=== PATIENT | male | born 1995 | race Caucasian/White ===

== ENCOUNTER 2022-12-16 18:39 | Emergency (ER) | payer SELFPAY ==
[2022-12-16 19:01] VITALS: BP 143/83; PULSE 74; RESP 16; TEMP 36.8; O2SAT 99; BMI 31.2
--- NOTE | 2022-12-16 20:06 | USR_ITS ---
PROCEDURE INFORMATION: Exam: US Duplex Left Lower Extremity Veins, Limited Exam date and time: 12/16/2022 8:28 PM Age: 27 years old Clinical indication: Pain; Leg, lower; Left; Additional info: Lle pain, left popliteal pain radiating down into the left calf TECHNIQUE: Imaging protocol: Real-time duplex ultrasound of the left extremity with 2-D reagan scale, color Doppler flow and spectral waveform analysis including responses to compression and other maneuvers (when performed) with image documentation. Limited exam focused on the left lower extremity veins. COMPARISON: No relevant prior studies available. FINDINGS: Left deep veins: Unremarkable. The common femoral, femoral, proximal profunda femoral and popliteal veins are patent without thrombus. Normal Doppler waveforms. Normal compressibility and/or augmentation response. Left superficial veins: Unremarkable. Saphenofemoral junction is patent without thrombus. Soft tissues: Unremarkable. US/[place] [id number] IMPRESSION: No evidence of deep vein thrombosis.
--- NOTE | 2022-12-16 20:40 | W.ED.EXTPRO ---
HPI - Extremity Problem General: Chief complaint: Extremity Problem,Nontraumatic Stated complaint: left leg pain radiating Time Seen by Provider: 12/16/22 19:30 Source: patient Mode of arrival: ambulatory Limitations: no limitations History of Present Illness: Patient presents to the emergency department today for evaluation treatment of left popliteal pain radiating down into his left calf. Patient states is been bothering him off and on now for several days but has not gotten any better. He denies any known injuries. He states nothing like this is happened before. He has not had fevers. 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 He denies any previous injuries to the knee in the past. Review of Systems General: Reports: 10 or more systems reviewed and unremarkable except in HPI and below Physical Exam Const: COMMON NORMALS: no acute distress, patient oriented x3 and alert HENMT: COMMON NORMALS: normocephalic, atraumatic and hearing grossly normal bilaterally HEAD & SCALP: normocephalic and atraumatic Eye: COMMON NORMALS: Equal, round and reactive pupils present, EOMs intact bilaterally and conjunctivae normal CONJUNCTIVA: Yes conjunctivae normal PUPIL: Yes Equal, round and reactive pupils present Neck/C-Spine: COMMON NORMALS: full ROM and no JVD Lymph: LYMPHATIC: no lymphadenopathy noted Resp: COMMON NORMALS: normal respiratory effort, No retractions and No use of accessory muscles Cardio: COMMON NORMALS: no JVD and regular rate RATE: regular rate Extremity: NARRATIVE EXTREMITY EXAM: Patient is point tender on palpation to the left popliteal region. No anterior knee pain or effusion appreciated. He did have some discomfort with mobility felt in the medial portion of the knee. Patient had tenderness on palpation to the left calf but, is Homans negative. No signs of edema or pitting edema or erythema in the calf or ankle region. No signs of trauma with abrasions or bruising noted. Patient was independently ambulatory and weightbearing in the ER. Neuro: COMMON NORMALS: patient oriented x3 SENSORIUM/ORIENTATION: Yes alert Psych: COMMON NORMALS: mental status grossly normal, Normal thought process present, cooperative and normal affect THOUGHT PROCESS: Normal thought process present Skin: COMMON NORMALS: no rashes or lesions noted and turgor normal GENERAL SKIN EXAM: no rashes or lesions noted and turgor normal Course Vital Signs: Vital signs: Vital Signs Temperature 98.2 F 12/16/22 19:01 Pulse Rate 74 12/16/22 19:01 Respiratory Rate 16 12/16/22 19:01 Blood Pressure 143/83 12/16/22 19:01 Pulse Oximetry 99 12/16/22 19:01 Oxygen Delivery Me thod Room Air 12/16/22 19:01 MDM - Extremity (Nontraumatic) Medical Decision Making Patient presented to the ER today for left popliteal and left calf pain which started about 4 days ago intermittently. He denies any known injury and ultrasound was negative for signs of DVT. Given the location of his pain and the description of the radiation down into the calf I was suspicious for a Huff's cyst-especially as patient does a lot of squatting and lifting of heavy objects at work. However, ultrasound did not indicate any obvious signs of popliteal cyst. Still, we will treat for potential cyst and recommended the weekend off of work with treatment using anti-inflammatories, rest, muscle relaxers. Patient was also given informational handout about popliteal bursitis for him to look over at home. He was given strict return precautions for any sudden worsening in swelling, redness, fever, or inability to bear weight on the extremity. Recommended follow-up appointment primary care next week for any residual discomfort. Differential Diagnosis Likely cellulitis, superficial thrombophlebitis, lower extremity edema and deep vein thrombosis of lower extremity Lab Data Radiology Impressions Venous Duplex 12/16/22 20:06 IMPRESSION: No evidence of deep vein thrombosis. Discharge Plan Discharge Patient Disposition: Home Clinical Impression: Popliteal pain, Pain of left calf Condition: Stable Prescriptions: New Leatha Arthritis Pain 1 % gel 4 g topical QID Qty: 100 0RF Rx Instructions: apply to single knee, ankle, foot; for foot includes sole/toes/top of foot cyclobenzaprine 10 mg tablet 10 mg PO TID Qty: 30 0RF naproxen 500 mg tablet 500 mg PO BID PRN (Reason: pain) Qty: 20 0RF Discharge Orders: Discharge ED (Routine); Ordered 12/16/22 Ordered By: Iza Martinez Discharge Diet: Usual diet Discharge Activity: Increase activity as tolerated Patient Instructions: Huff Cyst (ED), Leg Cramps (ED) Activity Restrictions/Additional Instructions: Ultrasound of your leg today showed no signs of any blood flow impingement including any clots. It is possible that given the location of your pain and the description, you may have a swelling of your popliteal bursa. As we discussed, this is a fluid-filled pouch that helps with smooth mobility of the knee while it flexes and extends. This can become irritated and inflamed causing swelling and pain primarily felt behind the knee which can also radiate down into the calf muscle. We are going to provide you some medication to help with inflammation and muscle pain. We do not recommend taking cyclobenzaprine if you are going to drive or work as this medication can cause sedation. I recommend you take the next couple of days off work to be able to take your medications safely and to rest your leg. I have given you an informational handout about Huff's cyst/popliteal bursitis for you to look over at home. Do recommend seeing your primary care doctor next week if you are not noticing any improvement or, if you develop significant swelling of your lower leg, redness of your lower leg, fever, or inability to stand or walk on your leg, you need to be seen and reevaluated back here in the emergency department. Stand Alone Forms: Work/School Release Coding Level of Care Code ED [employer] for [employer]
[2022-12-16] MEDS: cyclobenzaprine 10 mg Tablet PO (22:02)
[2022-12-16] MEDS: ketorolac 60 mg/2 mL INJ IM (22:02)
--- NOTE | 2022-12-21 12:53 | DCPLANNER ---
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
== END 2022-12-16 22:10 | disposition home or self-care (01) ==
PROVIDERS: Emergency Provider Physician Assistant
DX: M79.662 Pain in left lower leg (principal)
CPT/HCPCS: 93971; 96372; 99284; J1885